=== PATIENT | male | born 1975 | race Caucasian/White ===

== ENCOUNTER 2022-08-09 17:38 | Emergency (ER) | payer OTHER ==
[~2022-08-09] VITALS: Ht 195.6 cm; Wt 114.6 kg
[2022-08-09 17:47] VITALS: BP 153/98
== END 2022-08-09 19:33 | disposition left against medical advice (07) ==
LOC: ER 17:39
DX: K13.79 Other lesions of oral mucosa (principal)
CPT/HCPCS: 99281

== ENCOUNTER 2023-03-30 17:04 | Emergency (ER) | payer MEDICAID, OTHER ==
[~2023-03-30] VITALS: Ht 195.6 cm; Wt 120.7 kg
[2023-03-30 17:19] VITALS: PULSE 102; RESP 18; TEMP 97.5; O2SAT 93
[2023-03-30] MEDS ORDERED: iohexol 300mg/ml 100ml inj. ONE (19:10)
== END 2023-03-30 22:45 | disposition home or self-care (01) ==
LOC: ER 17:04
DX: K13.79 Other lesions of oral mucosa (principal)
CPT/HCPCS: 70487; 99285; J3490; Q9967